=== PATIENT | male | born 1980 | race African-American/Black ===

== ENCOUNTER 2023-11-12 18:45 | Emergency (ER) | payer SELFPAY ==
--- NOTE | ~2023-11-12 | CT_ITS ---
EXAMINATION: CT abdomen pelvis w con DATE: 11/12/2023 21:39 INDICATION: Eval hernia TECHNIQUE: Computed tomography (CT) of the abdomen and pelvis was performed with 100 mL Omnipaque-350 intravenous contrast. Automated exposure control and iterative reconstruction technique were employe d. The dose-length product was 383.84 mGy-cm. COMPARISON: None. FINDINGS: Lower thorax: Unremarkable Liver: Scattered subcentimeter hypodensities, too small to characterize, likely represent cysts or he mangiomas. Biliary/Gallbladder: Gallbladder is normal. No bile duct dilation. Pancreas: No mass or duct dilation. Spleen: Normal. Adrenals:No mass. Kidneys: No suspicious mass, obstructing stone, or hydronephrosis. GI tract: Mild distal esophageal and gastric wall edema. No small or large bowel dilation. The append ix is not confidently visualized. Mesentery/Peritoneum: No ascites, mass, or free air. Retroperitoneum: No mass. Pelvis: Pelvic organs are within normal limits. Soft Tissues: Uncomplicated appearing right inguinal hernia, containing fat and nonobstructed small b owel. Bones: No acute osseous finding. Lumbar scoliosis. Multilevel degenerative disc disease. IMPRESSION: Mild esophagitis/gastritis. Uncomplicated appearing right inguinal hernia, containing fat and nonobstructed small bowel. Reviewed, dictated and finalized at location K.
[2023-11-12 18:48] VITALS: BP 144/79; PULSE 84; RESP 20; TEMP 36.4; O2SAT 99
[2023-11-12 21:14] LABS: Basophils Percent Auto 0.7 % (0.2-1.2); Eosinophils Absolute Auto 0.1 K/mm3 (0-0.3); Hematocrit 40.2 % (42.0-52.0); Hemoglobin 13.8 g/dL (14.0-18.0); Immature Granulocyte Absolute 0.01 K/mm3 (0.00-0.031); Immature Granulocyte Percent A 0.2 % (0-0.5); Lymphocytes Absolute Auto 2.32 K/mm3 (0.9-3.2); Lymphocytes Percent Auto 38.3 % (18.3-44.2); Mean Corpuscular HGB Conc 34.3 g/dl (32-36); Mean Corpuscular Hemoglobin 30.1 pg (26-34); Mean Corpuscular Volume 87.6 fl (80-100); Mean Platelet Volume 9.4 fl (7.4-10.4); Monocytes Absolute Auto 0.7 K/mm3 (0.1-0.6); Monocytes Percent Auto 11.7 % (2.6-8.5); Neutrophils Absolute Auto 2.9 K/mm3 (1.3-6.7); Neutrophils Percent Auto 48.1 % (45.5-73.1); Platelet Count Result 281 k/mm3 (150-375); Red Blood Count 4.59 M/mm3 (4.6-6.20); Red Cell Distribution Width 13.5 % (11.5-14.5); White Blood Count 6.1 K/mm3 (4.5-10.0)
[2023-11-12 21:22] LABS: Alanine Aminotransferase 21 U/L (6-50); Albumin Level 4.5 g/dL (3.5-5.1); Alkaline Phosphatase 73 U/L (38-126); Anion Gap 3 mmol/L (4-12); Aspartate Amino Transferase 34 U/L (17-59); Bilirubin,Total 0.9 mg/dL (0.2-1.3); Blood Urea Nitrogen 14 mg/dL (9-20); Calcium 9.1 mg/dL (8.4-10.2); Carbon Dioxide 38 mmol/L (22-30); Chloride 96 mmol/L (98-107); Estimated CRCL calculation 81 ml/min; Estimated Glomerular Filt Rate > 60; Glucose 110 mg/dL (65-110); Lactic Acid Reflex 0.9 mmol/L (0.7-2.0); Lipase 31 U/L (23-300); Potassium 3.6 mmol/L (3.4-5.0); Sodium 137 mmol/L (137-145)
--- NOTE | 2023-11-12 21:43 | ED.GENADULT ---
HPI - General Adult General Chief complaint: Abdominal Pain Stated complaint: possible hernia pain in groin/lower abd pain Time Seen by Provider: 11/12/23 20:38 History of Present Illness HPI narrative: This is a 43-year-old male presenting with possible hernia. He has noticed a bulge in his right groin. It is worse with straining. Resolves overnight. No nausea vomiting diarrhea. Still having normal bowel movements. Exam Narrative: APPEARANCE: No apparent distress. Head: atraumatic. EYES: EOMI, NOSE: Atraumatic NECK: Trachea midline RESPIRATORY: No increased rate of breathing CARDIOVASCULAR: RRR, ABDOMINAL: Small hernia in the right inguinal area. Reducible. No overlying skin changes. Nontender MUSCULOSKELETAl: No obvious deformities NEURO: Alert. Moving 4/4 extremities SKIN:: Warm, dry. Normal color PSYCHIATRIC: Normal affect Course Vital Signs Vital signs: Vital Signs Temperature 97.5 F L 11/12/23 18:48 Pulse Rate 84 11/12/23 18:48 Respiratory Rate 20 11/12/23 18:48 Blood Pressure 144/79 H 11/12/23 18:48 Pulse Oximetry 99 11/12/23 18:48 Temperature 97.5 F L 11/12/23 18:48 Pulse Rate 84 11/12/23 18:48 Respiratory Rate 20 11/12/23 18:48 Blood Pressure 144/79 H 11/12/23 18:48 Pulse Oximetry 99 11/12/23 18:48 Medical Decision Making MDM Narrative Medical decision making narrative: -Course: 43-year-old male presenting with a reducible inguinal hernia. Patient will be discharged with outpatient surgery follow-up. Patient educated on signs of incarcerated or strangulated hernia and given return precautions. -DDX includes but is not limited to: Hernia, incarcerated hernia, strangulated hernia -Independent interpretation of studies: Labs and imaging reviewed -Shared decision making / Disposition: Discharged Vital Signs Vital Signs: Vital Signs Temperature 97.5 F L 11/12/23 18:48 Pulse Rate 84 11/12/23 18:48 Respiratory Rate 20 11/12/23 18:48 Blood Pressure 144/79 H 11/12/23 18:48 Pulse Oximetry 99 11/12/23 18:48 Temperature 97.5 F L 11/12/23 18:48 Pulse Rate 84 11/12/23 18:48 Respiratory Rate 20 11/12/23 18:48 Blood Pressure 144/79 H 11/12/23 18:48 Pulse Oximetry 99 11/12/23 18:48 Lab Data 11/12/23 21:04 11/12/23 21:04 Labs: Lab Results 11/12/23 Range/Units 21:04 WBC 6.1 (4.5-10.0) K/mm3 RBC 4.59 L (4.6-6.20) M/mm3 Hgb 13.8 L (14.0-18.0) g/dL Hct 40.2 L (42.0-52.0) % MCV 87.6 (80-100) fl MCH 30.1 (26-34) pg MCHC 34.3 (32-36) g/dl RDW 13.5 (11.5-14.5) % Plt Count 281 (150-375) k/mm3 MPV 9.4 (7.4-10.4) fl Immature Gran % (Auto) 0.2 (0-0.5) % Neut % (Auto) 48.1 (45.5-73.1) % Lymph % (Auto) 38.3 (18.3-44.2) % [place] % (Auto) 11.7 H (2.6-8.5) % Eos % (Auto) 1.0 (0-4.4) % Baso % (Auto) 0.7 (0.2-1.2) % Lymph # (Auto) 2.32 (0.9-3.2) K/mm3 [place] # (Auto) 0.7 H (0.1-0.6) K/mm3 Eos # (Auto) 0.1 (0-0.3) K/mm3 Baso # (Auto) 0.0 (0.0-0.1) K/mm3 Abs Immat Gran (auto) 0.01 (0.00-0.031) K/mm3 Absolute Neuts (auto) 2.9 (1.3-6.7) K/mm3 Absolute Nucleated RBC 0.000 (0.0-0.012) K/mm3 Nucleated RBC % 0.0 (0.0-0.2) % Sodium 137 (137-145) mmol/L Potassium 3.6 (3.4-5.0) mmol/L Chloride 96 L (98-107) mmol/L Carbon Dioxide 38 H (22-30) mmol/L Anion Gap 3 L (4-12) mmol/L BUN 14 (9-20) mg/dL Creatinine 1.20 (0.7-1.3) mg/dL Estim Creat Clear Calc 81 ml/min Estimated GFR > 60 (59 - ) Glucose 110 (65-110) mg/dL Lactic Acid 0.9 (0.7-2.0) mmol/L Calcium 9.1 (8.4-10.2) mg/dL Total Bilirubin 0.9 (0.2-1.3) mg/dL AST 34 (17-59) U/L ALT 21 (6-50) U/L Alkaline Phosphatase 73 (38-126) U/L Total Protein 8.0 (6.3-8.2) g/dL Albumin 4.5 (3.5-5.1) g/dL Lipase 31 (23-300) U/L Discharge Plan Discharge Clinical Impression: Hernia Patient Disposition: Home, Self-Care Condition:
== END 2023-11-12 22:00 | disposition home or self-care (01) ==
PROVIDERS: Emergency Provider Emergency Medicine
DX: K40.90 Unilateral inguinal hernia, without obstruction or gangrene, not specified as recurrent (principal); K20.90 Esophagitis, unspecified without bleeding; K29.70 Gastritis, unspecified, without bleeding
CPT/HCPCS: 36415; 74177; 80053; 83605; 83690; 85025; 99284; Q9967